=== PATIENT | female | born 2000 | race Caucasian/White ===

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

== ENCOUNTER 2022-01-27 15:30 | Emergency (ER) | payer MEDICAID ==
[2022-01-27 17:26] LABS: CORONAVIRUS COVID-19 NAA POSITIVE (NEGATIVE); INFLUENZA A NAA NEGATIVE (NEGATIVE); INFLUENZA B NAA NEGATIVE (NEGATIVE)
[2022-01-27 17:45] VITALS: BP 113/78; PULSE 68
== END 2022-01-27 17:56 | disposition home or self-care (01) ==
LOC: MW.ED 15:30
DX: U07.1 COVID-19 (principal); E66.9 Obesity, unspecified; Z68.30 Body mass index [BMI] 30.0-30.9, adult; Z88.8 Allergy status to other drugs, medicaments and biological substances
CPT/HCPCS: 0240U; 71045; 81001; 81025; 99284; 99283

== ENCOUNTER 2022-09-12 18:15 | Emergency (ER) | payer MEDICAID ==
[2022-09-12] MEDS ORDERED: Sodium Chloride 0.9% 1,000 ML IV ONE (18:46)
[2022-09-12] MEDS ORDERED: Ondansetron 4 MG/2 ML SDV IVPUSH ONE (19:34)
[2022-09-12] MEDS ORDERED: Ketorolac 30 MG/ML SDV IVPUSH ONE (19:35)
[2022-09-12 20:24] LABS: CARBON DIOXIDE,CO2 24.5 mmol/L (21.0-32.0); POTASSIUM,K 3.7 mmol/L (3.5-5.1)
[2022-09-12] MEDS ORDERED: Iopamidol 755 MG/ML 500 ML Multipack Bottle IVPUSH STA (20:59)
[2022-09-12 21:52] VITALS: BP 123/74; PULSE 81
== END 2022-09-12 21:53 | disposition home or self-care (01) ==
LOC: MW.ED 18:15
DX: K52.9 Noninfective gastroenteritis and colitis, unspecified (principal); J45.909 Unspecified asthma, uncomplicated; E66.9 Obesity, unspecified; Z68.30 Body mass index [BMI] 30.0-30.9, adult
CPT/HCPCS: 36415; 74177; 80053; 81025; 83690; 85025; 96361; 96374; 96375; 99284; J1885; J2405; J7030; Q9967; 99283

== ENCOUNTER 2023-05-28 22:44 | Emergency (ER) | payer MEDICAID ==
[2023-05-28] MEDS ORDERED: Acetaminophen/HYDROcodone 325-5 MG Tab PO ONE (23:43)
[2023-05-29 00:33] VITALS: BP 127/60; PULSE 76
== END 2023-05-29 00:33 | disposition home or self-care (01) ==
LOC: MW.ED 22:44
DX: S82.64XA Nondisplaced fracture of lateral malleolus of right fibula, initial encounter for closed fracture (principal); J45.909 Unspecified asthma, uncomplicated; E66.9 Obesity, unspecified; Z68.27 Body mass index [BMI] 27.0-27.9, adult; Z86.16 Personal history of COVID-19; Z91.040 Latex allergy status; Z88.5 Allergy status to narcotic agent; X50.1XXA Overexertion from prolonged static or awkward postures, initial encounter; Y93.01 Activity, walking, marching and hiking
CPT/HCPCS: 29515; 73610; 99283; A9270

== ENCOUNTER 2023-09-26 01:43 | Emergency (ER) | payer OTHER, MEDICAID ==
[2023-09-26 01:53] VITALS: BP 125/77; PULSE 78
== END 2023-09-26 02:18 | disposition home or self-care (01) ==
LOC: MW.ED 01:43
DX: Z13.9 Encounter for screening, unspecified (principal); E66.9 Obesity, unspecified; E11.9 Type 2 diabetes mellitus without complications; Z91.041 Radiographic dye allergy status; Z88.8 Allergy status to other drugs, medicaments and biological substances; Z86.16 Personal history of COVID-19; Z68.27 Body mass index [BMI] 27.0-27.9, adult
CPT/HCPCS: 99281; 99283

== ENCOUNTER 2025-03-20 18:20 | Emergency (ER) | payer MEDICAID ==
[2025-03-20] MEDS: Ketorolac 30 MG/ML SDV IM ONE (19:00)
[2025-03-20 19:05] VITALS: BP 122/74; PULSE 71
== END 2025-03-20 19:35 | disposition home or self-care (01) ==
LOC: MW.ED 18:20
DX: M25.512 Pain in left shoulder (principal); G89.29 Other chronic pain; E66.9 Obesity, unspecified; Z88.5 Allergy status to narcotic agent; Z91.040 Latex allergy status; Z86.16 Personal history of COVID-19; Z68.34 Body mass index [BMI] 34.0-34.9, adult; X50.0XXA Overexertion from strenuous movement or load, initial encounter
CPT/HCPCS: 73030; 96372; 99283; A9270; J1885; J8540

== ENCOUNTER 2025-04-03 10:26 | Emergency (ER) | payer MEDICAID ==
[2025-04-03 11:20] LABS: BASOPHILS ABSOLUTE AUTO 0.03 K/uL (0.00-0.20); BASOPHILS PERCENT AUTO 0.4 % (0.0-1.0); EOSINOPHILS ABSOLUTE AUTO 0.02 K/uL (0.00-0.45); EOSINOPHILS PERCENT AUTO 0.3 % (0.0-6.0); IMMATURE GRAN ABSOLUTE AUTO 0.02 K/uL (0.00-0.05); IMMATURE GRAN PERCENT AUTO 0.3 % (0.0-0.4); LYMPHOCYTES ABSOLUTE AUTO 1.99 K/uL (1.00-4.80); LYMPHOCYTES PERCENT AUTO 28.9 % (24.0-44.0); MEAN PLATELET VOLUME 9.7 fL (9.4-12.3); MONOCYTES ABSOLUTE AUTO 0.33 K/uL (0.00-0.80); MONOCYTES PERCENT AUTO 4.8 % (0.0-8.0); NEUTROPHILS ABSOLUTE AUTO 4.49 K/uL (1.80-7.70); NEUTROPHILS PERCENT AUTO 65.3 % (41.0-71.0); NRBC ABSOLUTE 0.00 K/uL (0.00-0.02); NRBC PERCENT 0.0 /100WBC (0.0-0.2); PLATELET COUNT,PLT 245 K/uL (150-400); RED BLOOD CELL COUNT 4.87 M/uL (4.10-5.30); WHITE BLOOD CELL COUNT,WBC 6.88 K/uL (3.9-11.3)
[2025-04-03] MEDS: Sodium Chloride 0.9% 2.5 ML Syringe FLUSH PRN (11:22)
[2025-04-03] MEDS: Sodium Chloride 0.9% 10 ML Syringe FLUSH PRN (11:22)
[2025-04-03] MEDS: Ondansetron 4 MG/2 ML SDV IVPUSH ONE (11:23)
[2025-04-03] MEDS: Alum Hydrox/Mag Hydrox/Simeth 15 ML, Lidocaine 2% 5 ML PO ONE (11:23)
[2025-04-03 11:41] LABS: A/G RATIO 1.3 (0.9-1.6); ALANINE AMINOTRANSFERASE,ALT 40.0 IU/L (14-63); ASPARTATE AMNIOTRANSFERASE,AST 20.0 IU/L (15-37); BILIRUBIN TOTAL 0.3 mg/dL (0.2-1.0); BLOOD UREA NITROGEN,BUN 15.0 mg/dL (7.0-18.0); CARBON DIOXIDE,CO2 26.1 mmol/L (21.0-32.0); CHLORIDE,CL 107.0 mmol/L (98-107); CREATININE 0.8 mg/dL (0.6-1.0); EST CRCL DRUG DOSING (CG) 110.33 mL/min; ESTIMATED GFR 106.0 mL/min (>60); GLUCOSE RANDOM 95.0 mg/dL (74-106); POTASSIUM,K 4.2 mmol/L (3.5-5.1); PROTEIN TOTAL,TP 7.5 g/dL (6.4-8.2); SODIUM,NA 142.0 mmol/L (136-145)
[2025-04-03] MEDS: Ketorolac 30 MG/ML SDV IVPUSH ONE (11:55)
[2025-04-03 12:58] LABS: APPEARANCE,URINE CLEAR; GLUCOSE,URINE NEGATIVE (NEGATIVE); OCCULT BLOOD,URINE TRACE-INTACT (NEGATIVE)
[2025-04-03 13:08] LABS: EPITHELIAL CELLS,URINE FEW (NONE-FEW)
[2025-04-03 14:11] VITALS: BP 133/84; PULSE 62
== END 2025-04-03 14:12 | disposition home or self-care (01) ==
LOC: MW.ED 10:26
DX: A08.4 Viral intestinal infection, unspecified (principal); E66.9 Obesity, unspecified; Z75.3 Unavailability and inaccessibility of health-care facilities; Z88.5 Allergy status to narcotic agent; Z91.040 Latex allergy status; Z68.30 Body mass index [BMI] 30.0-30.9, adult
CPT/HCPCS: 36415; 76705; 80053; 81001; 83690; 83735; 84703; 85025; 96361; 96374; 96375; 99284; A9270; J1885; J2405; J3490; J7030; 99283